=== PATIENT | female | born 1980 | race Caucasian/White ===

== ENCOUNTER 2021-02-15 09:56 | Emergency (ER) | payer BC ==
[~2021-02-15] VITALS: Ht 175.3 cm; Wt 90.9 kg
[~2021-02-15 09:56] MED LIST: ADVAIR 250/28 DISKUS IH; CEPHALEXIN500 M1 PO; CLARITIN; DROSPIRENONE; IRON; PRENATAL VITAMI1 TA5 PO; PROVENTIL0.09 MG/A1 IH; SLOW FE; VENTOLIN0.09 MG IH; WELLBUTRIN PO; ZYRTEC-D 5 MG-11 TER PO
[2021-02-15 10:10] VITALS: TEMP 98.2
[2021-02-15] MEDS ORDERED: ZITHROMAX Z PA250 MG PO (10:35)
[2021-02-15] MEDS ORDERED: CLEVER CHOICE1 EA20 MC (10:35)
[2021-02-15] MEDS ORDERED: VENTOLIN0.09 MG IH (10:35)
[2021-02-15] MEDS ORDERED: PREDNISONE50 MG PO (10:35)
[2021-02-15 11:10] VITALS: BP 108/71; PULSE 75
== END 2021-02-15 11:10 | disposition home or self-care (01) ==
LOC: COL.ER 09:56
DX: U07.1 COVID-19 (principal); J45.909 Unspecified asthma, uncomplicated; Z79.899 Other long term (current) drug therapy

== ENCOUNTER 2021-02-20 13:03 | Emergency (ER) | payer BC ==
[~2021-02-20] VITALS: Ht 175.3 cm; Wt 90.9 kg
[~2021-02-20 13:03] MED LIST changes: +CLEVER CHOICE1 EA20 MC; +PREDNISONE50 MG PO; +ZITHROMAX Z PA250 MG PO
[2021-02-20 13:16] VITALS: TEMP 98.3
[2021-02-20 15:10] VITALS: BP 108/67; PULSE 63
== END 2021-02-20 15:10 | disposition home or self-care (01) ==
LOC: COL.ER 13:03
DX: U07.1 COVID-19 (principal); J45.909 Unspecified asthma, uncomplicated; Z79.899 Other long term (current) drug therapy

== ENCOUNTER 2021-02-23 15:14 | Emergency (ER) | payer BC ==
[~2021-02-23] VITALS: Ht 175.3 cm; Wt 88.6 kg
[2021-02-23 15:30] VITALS: TEMP 98.1
[2021-02-23 18:47] LABS: BASO % 0.5 % (0.0-2.0); EOS # 0.1 K/mm3 (0.0-0.7); GRAN # 5.1 K/mm3 (1.4-6.5); GRAN % 59.1 % (42.2-75.2); HEMATOCRIT 39.8 % (37.0-47.0); HEMOGLOBIN 13.8 g/dl (12.5-16.0); LYMPH # 2.9 K/mm3 (1.2-3.4); LYMPH % 33.4 % (20.0-51.0); MEAN CELL VOLUME 87 fl (80.0-100.0); MEAN CORPUSCULAR HEMOGLOBIN 30 pg (27-31); MEAN CORPUSCULAR HGB CONC 35 g/dl (33.0-37.0); MONO # 0.5 K/mm3 (0.1-0.6); MONO % 5.3 % (1.7-9.3); PLATELET COUNT 322 K/mm3 (130-400); RED BLOOD COUNT 4.56 M/mm3 (4.10-5.30); REDCELL DISTRIBUTION WIDTH-CV 11.8 % (11.5-14.5)
[2021-02-23 19:14] LABS: ALANINE AMINOTRANSFERASE 22 U/L (0-55); ALBUMIN 3.9 gm/dL (3.5-5.0); ALKALINE PHOSPHATASE 60 U/L (40-150); ANION GAP 9 mmol/L (7-16); AST,SGOT 16 U/L (5-34); BILIRUBIN,TOTAL 0.3 mg/dL (0.2-1.2); BLOOD UREA NITROGEN 13 mg/dL (7-19); CALCIUM 8.8 mg/dL (8.4-10.2); CARBON DIOXIDE 25 mmol/L (22-29); CHLORIDE 104 mmol/L (98-107); CREATININE, serum 0.98 mg/dL (0.57-1.11); GLUCOSE 116 mg/dL (70-99); POTASSIUM 4.2 mmol/L (3.5-4.5); SODIUM 138 mmol/L (136-145)
[2021-02-23 19:28] LABS: TROPONIN-I < 0.010 ng/mL (0.00-0.033)
[2021-02-23] MEDS ORDERED: CARAFATE 1GM1 G PO (21:06)
[2021-02-23 21:19] VITALS: BP 118/78; PULSE 80
== END 2021-02-23 21:19 | disposition home or self-care (01) ==
LOC: COL.ER 15:14
PROVIDERS: Nurse Practitioner
DX: R06.02 Shortness of breath (principal); R10.13 Epigastric pain; J45.909 Unspecified asthma, uncomplicated; K21.9 Gastro-esophageal reflux disease without esophagitis; Z79.52 Long term (current) use of systemic steroids; Z79.899 Other long term (current) drug therapy

== ENCOUNTER → 2021-09-29 | Outpatient (CLI) | payer BC ==
[~2021-09-29] MED LIST changes: +CARAFATE 1GM1 G PO
== END ==
LOC: MC.RAD 09:50
DX: N63.10 Unspecified lump in the right breast, unspecified quadrant (principal)